=== PATIENT | male | born 1965 | race Caucasian/White ===

== ENCOUNTER 2018-10-12 10:01 | Observation (INO) ==
--- NOTE | 2018-10-12 09:30 | History & Physical Report ---
Date of Encounter: 10/12/18 Time of Encounter: 09:29 24 Hour HP Update - Instructions Instructions: If the History and Physical is less than 30 days old and was completed prior to A.M. admission and or procedure and has NOT been updated on calendar day of procedure please complete this update prior to performing procedure. - Update Patient reports changes in Medical Condition: No Changes in examination, assessment, or condition: No Changes in Medication: No Preop tests/diagnostics Reviewed: Yes Surgery Remains Indicated: Yes Consent for Planned Operative Procedure(s) Verified: Yes
--- NOTE | 2018-10-12 09:30 | Pre-Sedation Evaluation ---
Pre-sedation evaluation - Pre-sedation checklist ASA Classification *see protocol: CLASS II-Mild systemic disease Plan of Care: Pt appropriate candidate for procedure/moderate/conscious sedation, Risks/benefits of procedure/sedation discussed w/ patient/family
[~2018-10-12 10:01] MED LIST: *HR* FentaNYL (PF) 100 MCG/2 ML VIAL IVP ONE; *HR* Midazolam HCl 2 MG/2 ML VIAL IVP ONE
--- NOTE | 2018-10-12 10:11 | History & Physical Report ---
Date of Encounter: 10/12/18 Time of Encounter: 10:11 24 Hour HP Update - Instructions Instructions: If the History and Physical is less than 30 days old and was completed prior to A.M. admission and or procedure and has NOT been updated on calendar day of procedure please complete this update prior to performing procedure. - Update Patient reports changes in Medical Condition: No Changes in examination, assessment, or condition: No Changes in Medication: No Preop tests/diagnostics Reviewed: Yes Surgery Remains Indicated: Yes Consent for Planned Operative Procedure(s) Verified: Yes - Pre-Operative Checklist Preoperative Checklist Indicated: Yes Prophylactic Antibiotic Ordered: Yes Home Medications Include Beta Ernie: Yes Beta Ernie Taken Today (Day of Surgery): Yes Beta Ernie Taken Yesterday (Day Prior to Surgery): Yes Is VTE Prophylaxis Indicated?: Yes
[2018-10-12] MEDS ORDERED: CeFAZolin Syr 2,000MG/20 ML 2,000 MG/20 ML SYRINGE IVPB ONE (10:35)
[2018-10-12 10:39] LABS: Basophils # 0.1 K/mcL (0.0-0.2); Basophils % 0.9 %; Eosinophils # 0.5 K/mcL (0.0-0.6); Hematocrit 44.1 % (37.5-50.1); Hemoglobin 14.2 g/dL (12.9-16.9); Immature Granulocytes % 0.6 % (0-4); Lymphocytes # 3.6 K/mcL (0.6-4.6); Lymphocytes % 28.8 %; Mean Corpuscular HGB Conc 32.2 g/dL (31.6-35.5); Mean Corpuscular Hemoglobin 29.1 pg (28.0-33.3); Mean Corpuscular Volume 90.4 fL (83.0-100.0); Mean Platelet Volume 11.6 fL (9.4-12.4); Monocytes # 0.6 K/mcL (0.0-1.3); Monocytes % 4.9 %; Neutrophils # 7.5 K/mcL (1.6-8.9); Platelet Count 193 K/mcL (140-400); Red Blood Count 4.88 M/mcL (4.19-5.50); Red Cell Distribution Width 12.8 % (11.5-14.5); Segmented Neutrophils % 60.8 %; White Blood Count 12.3 K/mcL (4.3-11.1)
[2018-10-12] MEDS ORDERED: Ringers Solution, Lactated 1,000 ML IVC SCH (10:45)
[2018-10-12 10:46] LABS: INR 1.1; Prothrombin Time 12.8 Seconds (9.4-12.1)
[2018-10-12] MEDS ORDERED: Acetaminophen IV 1,000 MG/100 ML INFUS..BTL IVPB ONE (11:09)
[2018-10-12] MEDS ORDERED: Famotidine 20 MG/2 ML VIAL IVP ONE (11:09)
--- NOTE | 2018-10-12 11:11 | Anesthesia Evaluation PreOp ---
Date of Encounter: 10/12/18 Time of Encounter: 11:09 - Past History Planned Operation: L perc neph Cardiac History: HTN, Hyperlipidemia Pulmonary History: LICO Dx (think pressure setting is 20?) [employer] History: Other (anxiety) Other Medical History: Renal (stone 1.7 cm), Diabetes Type II, GERD Anesthesia History: Past Anesthesia (previous MAC 3 grade 3 D-blade grade 2 with stylet) Alcohol Use: none Drug use: none Medications and Allergies Bisoprolol/HCTZ 106.25 [Ziac 11/14.25] 1 each PO DAILY 10/21/16 [History] Cefdinir [Omnicef] 300 mg PO BID #10 capsule 10/21/16 [Rx] Citalopram Hydrobromide [Citalopram HBr] 40 mg PO DAILY 10/21/16 [History] HYDROcodone/Acet 5/325 mg [[place] 5-325 mg] 1 tab PO Q4HR PRN #20 tab 10/21/16 [Rx] Quetiapine Fumarate [Seroquel] 50 mg PO BID 10/21/16 [History] clonazePAM [Klonopin] 0.5 mg PO BID 10/21/16 [History] metFORMIN [Glucophage] 500 mg PO DAILY 10/21/16 [History] Allergy/AdvReac Type Severity Reaction Status Date / Time No Known Allergies Allergy Verified 10/05/18 10:23 - Meds/Allergy Pre-op Review Medications Reviewed: Yes Allergies Reviewed: Yes Beta Blockers on Current Med List: No Anesthesia Results - Labs 10/12/18 10:16 Laboratory Tests 10/05/18 10:30 Potassium 3.8 Creatinine 0.91 Est GFR (Non-Af Amer) > 60 - Imaging EKG: report reviewed Anesthesia Exam Vital Signs/O2 Sat/Glucose, Most Recent Temp Pulse Resp BP Pulse Ox 98.3 F 97 18 116/78 97 10/12/18 10:34 10/12/18 10:34 10/12/18 10:34 10/12/18 10:34 10/12/18 10:34 Blood Glucose* 157 Weight: 113 kg NPO (# of Hours): > 8 hr - HEENT Pupil (Motor): Pupils equal Mallampati: IV Teeth: Normal Oral Opening: Less than or equal to 3 (large tongue and small oral opening) - [employer] LOC: Oriented - Cardiac Rhythm: Regular Murmur: None - Pulmonary Breath Sounds: bilateral Clear Respiratory Effort: Symmetrical Anesthesia Assess/Plan ASA Score: 3 Level of consciousness: Cooperative, Oriented Anesthetic Plan: General Monitoring Plan: Standard Monitors Recovery Plan: PACU
[2018-10-12] MEDS ORDERED: Ondansetron 4 MG/2 ML VIAL IVP ONE (11:13)
[2018-10-12] MEDS ORDERED: *HR* OxyCODONE Immed Rel 5 MG TABLET PO PRN ×2 (11:13→17:26)
[2018-10-12] MEDS ORDERED: *HR* Promethazine 25 MG/ML VIAL IVP PRN (11:13)
[2018-10-12] MEDS ORDERED: Albuterol 2.5 MG/3 ML NEBULIZER IH ONE (11:13)
[2018-10-12] MEDS ORDERED: *HR* HYDROmorphone (PF) 1 MG/ML SYRINGE IVP PRN (11:13)
[2018-10-12] MEDS ORDERED: *HR* Labetalol 20 MG/4 ML SYRINGE IVP PRN (11:13)
[2018-10-12] MEDS ORDERED: 0.9 % Sodium Chloride 500 ML ONE (11:42)
[2018-10-12] MEDS ORDERED: *HR* FentaNYL (PF) 100 MCG/2 ML VIAL ONE ×2 (13:48→15:07)
[2018-10-12] MEDS ORDERED: *HR* Propofol 200 MG/20 ML VIAL IVP ONE (13:48)
[2018-10-12] MEDS ORDERED: *HR* Midazolam HCl 2 MG/2 ML VIAL ONE (13:48)
[2018-10-12] MEDS ORDERED: Ondansetron 4 MG/2 ML VIAL ONE (13:49)
[2018-10-12] MEDS ORDERED: Lidocaine -MPF 2% 2 ML VIAL ONE (13:49)
[2018-10-12] MEDS ORDERED: Dexamethasone 4 MG/ML VIAL ONE (13:49)
[2018-10-12] MEDS ORDERED: *HR* Succinylcholine 200 MG/10 ML VIAL IVP ONE (13:49)
[2018-10-12] MEDS ORDERED: Lidocaine HCL 4 ML Topical Solution (Laryng-O-Jet Kit Sterile Pak) TP ONE (13:53)
[2018-10-12] MEDS ORDERED: Isovue-300 50 ML VIAL ONE ×2 (14:22→14:23)
--- NOTE | 2018-10-12 16:31 | Anesthesia Evaluation Post Op ---
Date of Encounter: 10/12/18 Time of Encounter: 16:30 - Discharge PostOp Status: Transfer Patient to floor (Patient's vital signs have been reviewed. Patient is stable postoperatively and has adequately recovered from anesthesia. Patient is determined to have stable airway patency and respiratory function including respiratory rate and oxygen saturation. Patient has a stable heart rate, blood pressure and adequate hydration. Patients mental status is acceptable. Patients temperature is appropriate. Pain and nausea are adequately controlled.)
--- NOTE | 2018-10-12 16:36 | Operative Note ---
Date of procedure: 10/12/18 Pre-op diagnosis: Left 1.8 cm renal calculi Post-op diagnosis: same Procedure: Left percutaneous nephrolithotomy Dilation of nephrostomy tract Nephrostogram Antegrade ureteral stent placement Anesthesia: GETA Surgeon: Mervin Cruz Was there an urology physician assistant present: No Estimated blood loss (cc): 10 Specimen: Stone fragments Condition: stable Disposition: PACU Procedure in Detail: Procedure in detail Patient was brought to OR and anesthesia was applied while the patient was on the hospital stretcher. He was then moved into the prone postion. ECPDS and bernard cath were in place. Proper patient cushioning was provided. Reentry nephrostomy placed by IR was identified. He was prepped and draped with the nephrostomy tube left in place. Time out was performed to confirm the proper patient and procedure. A 0.035 zip wire was placed through the reentry nephrostomy under fluoroscopy. The nephrostomy was removed leaving the wire in place. An 8 albanian dilator was then placed over the wire under fluoroscopy into the renal pelvis. The 8 albanian dilator was removed and a double lumen ureteral access sheath was placed over the wire into the renal pelvis. A nephrostogram was performed to confirm postion and a second wire was positioned down the ureter. The double lumen sheath was removed and the nephromax balloon (30 albanian) was placed over one of the wires and the radiodense markers positioned just inside the calyx. The balloon was inflated to 12-14 atmospheres of pressure and the waist was appropriately expanded. The blue reentry sheath was then passed over the balloon into the renal pelvis under flouroscopy. The balloon was removed and the nephroscope was inserted. The stone was visualized and the Togethera system was used to fragment the stone with pnuematic and ultrasonic lithotripsy. All stone fragments were extracted with graspers or suctioned out. I antegraded a 4.8 x 26 ureteral stone through the access sheath. A good curl was seen in the renal pelvis with the nephroscope. the distal curl was seen in the bladder. I did not place a nephrostomy tube. the sheath was removed and minimal bleeding was witnessed.
[2018-10-12] MEDS ORDERED: Ondansetron 4 MG/2 ML VIAL IVP PRN (17:26)
[2018-10-12] MEDS ORDERED: 0.9 % Sodium Chloride 1,000 ML IVC SCH (17:26)
[2018-10-12] MEDS ORDERED: Naloxone 0.4 MG/ML INJ IVP PRN (17:26)
[2018-10-12] MEDS ORDERED: *HR* Belladonna Alkaloids/Opium 30 MG RECTAL SUPPOSITORY RC PRN (17:26)
[2018-10-12] MEDS ORDERED: Acetaminophen 325 MG TABLET PO PRN (17:26)
[2018-10-12] MEDS ORDERED: *HR* HYDROcodone/Acet 5/325 mg TABLET PO PRN (17:26)
[2018-10-12 18:09] VITALS: BP 126/78
--- NOTE | 2018-10-12 18:43 | Discharge Summary ---
Orders not resulted at time of discharge: Pending orders 10/12/18 15:48 Surgical Pathology [PTH] Routine Date of Encounter: 10/12/18 Time of Encounter: 18:41 - Discharge Diagnosis (1) Renal stone Priority: Primary Status: Resolved - Hospital Course Hospital course: Mr. Sanchez is a 53 year old male status post percutaneous nephrolithotomy today. Stent was antegrated. No nephrostomy tube is in place. Patient is stable. Tolerating a diet. Urinating. Plan to discharge this evening. - Time Spent with Patient Total time spent providing and/or coordinating discharge services: Labs on day of discharge: Labs from last 24 hours 10/12/18 10/12/18 10/12/18 10:31 10:25 10:16 WBC 12.3 H RBC 4.88 Hgb 14.2 Hct 44.1 MCV 90.4 MCH 29.1 MCHC 32.2 RDW 12.8 Plt Count 193 MPV 11.6 Immature Gran % 0.6 Seg Neutrophils % 60.8 Lymphocytes % 28.8 Monocytes % 4.9 Eosinophils % 4.0 Basophils % 0.9 Neutrophils # 7.5 Lymphocytes # 3.6 Monocytes # 0.6 Eosinophils # 0.5 Basophils # 0.1 PT 12.8 H INR 1.1 POC Glucose 157 H - Impressions ITS Impressions Retroperitoneal Abscess Drainage 10/12/18 00:00 IMPRESSION: Successful percutaneous left nephroureteral stent placement D/ / Mason Cotton MD / Mason Cotton MD Interpreting Provider: Mason Cotton MD - Discharge Medications Prescriptions: New HYDROcodone/Acet 5/325 mg [[place] 5-325 mg] 1 tab PO Q6HR PRN 5 Days #20 tablet PRN Reason: Moderate Pain Continued Bisoprolol/HCTZ 10/6.25 [Ziac 10/6.25] 1 each PO HS Citalopram Hydrobromide [Citalopram HBr] 40 mg PO HS clonazePAM [Klonopin] 0.5 mg PO BID metFORMIN [Glucophage] 500 mg PO HS Quetiapine Fumarate [Seroquel] 50 mg PO BID Atorvastatin Calcium [Lipitor] 20 mg PO HS Liraglutide [Victoza 2-Esvin] 0.6 mg SQ HS rOPINIRole [Requip] 1 mg PO HS Home Medications: Bisoprolol/HCTZ 106.25 [Ziac 106.25] 1 each PO HS 10/21/16 [History] Citalopram Hydrobromide [Citalopram HBr] 40 mg PO HS 10/21/16 [History] Quetiapine Fumarate [Seroquel] 50 mg PO BID 10/21/16 [History] clonazePAM [Klonopin] 0.5 mg PO BID 10/21/16 [History] metFORMIN [Glucophage] 500 mg PO HS 10/21/16 [History] Atorvastatin Calcium [Lipitor] 20 mg PO HS 10/12/18 [History] HYDROcodone/Acet 5/325 mg [[place] 5-325 mg] 1 tab PO Q6HR PRN 5 Days #20 tablet 10/12/18 [Rx] Liraglutide [Victoza 2-Esvin] 0.6 mg SQ HS 10/12/18 [History] rOPINIRole [Requip] 1 mg PO HS 10/12/18 [History] Allergies/Adverse Reactions: Allergy/AdvReac Type Severity Reaction Status Date / Time No Known Allergies Allergy Verified 10/05/18 10:23 Date of admission: 10/12/18 17:26 Primary care physician: PCP NONE Discharging clinician: Mervin Cruz Anticipated date of discharge: 10/12/18 Exam Initial Vital Signs Temp Pulse Resp BP Pulse Ox 98.3 F 97 18 116/78 97 10/12/18 10:34 10/12/18 10:34 10/12/18 10:34 10/12/18 10:34 10/12/18 10:34 - General physical appearance Present: well developed, no distress - Patient Status Disposition: Home, Self-Care Condition: Good Functional capacity at discharge: independent ambulation Overall status at discharge: patient is progressing back to baseline - Discharge Instructions Instructions: Kidney Stones (DC), Percutaneous Nephrolithotomy (DC) Follow Up With: NONE,PCP [Primary Care Provider] - Mervin Cruz MD [Partnered Physician] - (My office will call for follow- up) Additional Instructions: Patient may need to keep dressings over back incision as there may be drainage for the next few days. This is normal. Call if excessive. Okay to shower. Call if severe pain. Call if fever over 101 degrees It is normal to have stent discomfort including urgency, frequency, burning on urination, light blood in the urine. - Diet and Activity Activity: increase activity as tolerated Diet: advance to your usual diet
[2018-10-12] MEDS ORDERED: (Liraglutide [Victoza 2-Pak] 0.6 MG) SQ SCH (21:00)
[2018-10-12] MEDS ORDERED: Bisoprolol/HCTZ 10/6.25 TABLET PO SCH (21:00)
[2018-10-12] MEDS ORDERED: clonazePAM 0.5 MG TABLET PO SCH (21:00)
[2018-10-12] MEDS ORDERED: *HR* Metformin 500 MG TABLET PO SCH (21:00)
[2018-10-12] MEDS ORDERED: rOPINIRole 1 MG TABLET PO SCH (21:00)
== END 2018-10-12 18:57 | disposition home or self-care (01) ==
LOC: INTRAD 10:01 → 3ANU 10:01
PROVIDERS: ADMIT Urology; ATTEND Urology